=== PATIENT | male | born 1970 | race Caucasian/White ===

== ENCOUNTER 2020-10-18 21:32 | Emergency (ER) | payer OTHER ==
[~2020-10-18] VITALS: Ht 170.2 cm; Wt 95.3 kg
--- NOTE | 2020-10-18 21:54 | NUR ---
TELEPHONER AT BEDSIDE FOR DRAW
[2020-10-18 22:10] LABS: BASOPHILS % (AUTO) 0.7 % (0.0-2.0); EOSINOPHILS % (AUTO) 1.9 % (0.0-6.0); HEMATOCRIT 44 % (39-51); HEMOGLOBIN 15.3 g/dL (13.5-17.5); LYMPHOCYTES % (AUTO) 30.8 % (20.0-44.0); MEAN CORPUSCULAR HGB CONC 35 g/dl (31.0-36.0); MEAN CORPUSCULAR VOLUME 100 fL (80-96); MONOCYTES # (AUTO) 0.8 /CMM (0.1-1.30); MONOCYTES % (AUTO) 12.5 % (2.0-12.0); NEUTROPHILS # (AUTO) 3.5 /CMM (1.8-8.9); NEUTROPHILS % (AUTO) 54.1 % (43.0-81.0); PLATELET COUNT (AUTO) 250 /CMM (150-450); RED BLOOD CELL COUNT(AUTO) 4.45 MIL/uL (4.5-6.0); WHITE BLOOD COUNT (AUTO) 6.5 K/uL (4.3-11.0)
[2020-10-18 22:20] LABS: BILIRUBIN,URINE Negative (NEGATIVE); COLOR,URINE YELLOW (YELLOW); LEUKOCYTE ESTERASE ,URINE Negative (NEGATIVE); NITRITE, URINE Positive (NEGATIVE); PROTEIN,URINE Negative (NEGATIVE); UGLUCOSE Negative (NEGATIVE); UROBILINOGEN,URINE 0.2 EU/dL (0.2)
[2020-10-18 22:27] LABS: ACETAMINOPHEN < 10 ug/ml (10-30); ALANINE AMINOTRANSFERASE 60 U/L (12-78); ALBUMIN 4.3 g/dL (3.4-5.0); ALCOHOL, BLOOD < 3 mg/dL (0-0); ALKALINE PHOSPHATASE 99 U/L (46-116); ASPARTATE AMINOTRANSFERASE 54 U/L (15-37); BILIRUBIN,DIRECT 0.2 mg/dL (0.0-0.2); BILIRUBIN,TOTAL 0.8 mg/dL (0.2-1.0); CALCIUM, SERUM 9.4 mg/dL (8.5-10.1); CARBON DIOXIDE 31 mmol/L (21-32); CHLORIDE 102 mmol/L (98-107); CREATININE 1.4 mg/dL (0.6-1.3); GLUCOSE 104 mg/dL (74-106); POTASSIUM 4.1 mmol/L (3.5-5.1); SODIUM SERUM 139 mmol/L (136-145); TOTAL PROTEIN, SERUM 7.7 g/dL (6.4-8.2); UREA NITROGEN, BLOOD 19 mg/dL (7-18)
--- NOTE | 2020-10-18 22:38 | NUR ---
CLINICAL AND FACESHEET FAXED TO [facility] FOR VOLUNTARY ADMISSION.
[2020-10-18 23:13] LABS: RBC,URINE 0-2 /HPF (0-2)
[2020-10-18 23:14] LABS: BACTERIA,URINE Few /HPF (None Seen); MUCUS,URINE Few /LPF (None Seen); SQUAMOUS EPITHELIAL CELL,UR Few /HPF (None Seen); URINE AMORPHOUS PHOSPHATES Few /HPF (None Seen)
--- NOTE | 2020-10-19 00:07 | NUR ---
ACCEPTING INFO: PT ACCEPTED AT [facility] ACCEPTING MD CROOK PHONE # FOR REPORT PT WILL GO TO UNIT 2
--- NOTE | 2020-10-19 00:20 | NUR ---
[id number] CALLED FOR TRANSPORT. RESERVATION #[id number]. WILL CALL BACK FOR ETA.
--- NOTE | 2020-10-19 00:36 | NUR ---
[facility] ETA 0200 PER [id number].
--- NOTE | 2020-10-19 01:10 | NUR ---
REPORT CALLED TO JESSICA VALERIO.
[2020-10-19 01:18] VITALS: BP 124/86
--- NOTE | 2020-10-19 01:19 | NUR ---
TRANSPORT AT BEDSIDE REPORT GIVEN TO EMT.
== END 2020-10-19 01:27 ==
LOC: ER 21:32
DX: R45.851 Suicidal ideations (principal); F32.9 Major depressive disorder, single episode, unspecified; Z91.14 Patient's other noncompliance with medication regimen; Z20.822 Contact with and (suspected) exposure to COVID-19
CPT/HCPCS: 36415; 80048; 80076; 80299; 80307; 80320; 81001; 85025; 87086; 87426; 99285; C9803; G0480

== ENCOUNTER 2020-10-30 03:38 | Emergency (ER) | payer OTHER ==
[~2020-10-30] VITALS: Ht 170.2 cm; Wt 95.3 kg
--- NOTE | 2020-10-30 04:07 | NUR ---
BIBS FOR C/O SI PLANNNING TO HANG HIMSELF. PT IS REQUESTING VOLUNTARY PSYCH ADMISSION . PT AMBULATORY WITH STEADY GAIT. ALERT AND OX3. BREATHING EVENLY, W/ NO C.O PAIN OR DISCOMFORT. VSS. URINE SAMPLE OBTAINED. PT REMAINED UNDER SI PRECAUTION. WILL CONT TO MONITOR,
--- NOTE | 2020-10-30 04:09 | NUR ---
dr louis assessing the pt
[2020-10-30 04:10] VITALS: BP 154/98
[2020-10-30 04:39] LABS: BASOPHILS % (AUTO) 0.4 % (0.0-2.0); EOSINOPHILS % (AUTO) 1.9 % (0.0-6.0); HEMATOCRIT 40 % (39-51); HEMOGLOBIN 13.9 g/dL (13.5-17.5); LYMPHOCYTES # (AUTO) 1.2 /CMM (0.8-4.8); LYMPHOCYTES % (AUTO) 16.5 % (20.0-44.0); MEAN CORPUSCULAR HGB CONC 35 g/dl (31.0-36.0); MEAN CORPUSCULAR VOLUME 100 fL (80-96); MONOCYTES # (AUTO) 0.7 /CMM (0.1-1.30); MONOCYTES % (AUTO) 10.3 % (2.0-12.0); NEUTROPHILS % (AUTO) 70.9 % (43.0-81.0); PLATELET COUNT (AUTO) 227 /CMM (150-450); RED BLOOD CELL COUNT(AUTO) 4.01 MIL/uL (4.5-6.0); WHITE BLOOD COUNT (AUTO) 7.1 K/uL (4.3-11.0)
[2020-10-30 05:07] LABS: COLOR,URINE YELLOW (YELLOW)
[2020-10-30 05:08] LABS: PH,URINE 6.5 (5.0-8.0); PROTEIN,URINE NEGATIVE (NEGATIVE)
[2020-10-30 05:09] LABS: BILIRUBIN,URINE NEGATIVE (NEGATIVE); UGLUCOSE NEGATIVE (NEGATIVE); UROBILINOGEN,URINE 0.2 EU/dL (0.2)
[2020-10-30 05:10] LABS: ALANINE AMINOTRANSFERASE 46 U/L (12-78); ALBUMIN 3.7 g/dL (3.4-5.0); ALCOHOL, BLOOD < 3 mg/dL (0-0); ALKALINE PHOSPHATASE 82 U/L (46-116); ASPARTATE AMINOTRANSFERASE 27 U/L (15-37); BILIRUBIN,DIRECT 0.1 mg/dL (0.0-0.2); BILIRUBIN,TOTAL 0.4 mg/dL (0.2-1.0); CALCIUM, SERUM 8.8 mg/dL (8.5-10.1); CARBON DIOXIDE 26 mmol/L (21-32); CHLORIDE 103 mmol/L (98-107); CREATININE 1.1 mg/dL (0.6-1.3); GLUCOSE 104 mg/dL (74-106); POTASSIUM 3.4 mmol/L (3.5-5.1); SODIUM SERUM 139 mmol/L (136-145); TOTAL PROTEIN, SERUM 7.1 g/dL (6.4-8.2); UREA NITROGEN, BLOOD 11 mg/dL (7-18)
[2020-10-30 05:11] LABS: LEUKOCYTE ESTERASE ,URINE NEGATIVE (NEGATIVE); NITRITE, URINE NEGATIVE (NEGATIVE)
[2020-10-30 05:36] LABS: ACETAMINOPHEN < 2 ug/ml (10-30)
--- NOTE | 2020-10-30 11:02 | NUR ---
Health Benefits Specialist Consult: SW consult requested by ER staff for a 50 year old male for suicidal ideation. SW met with pt at waiting room and conducted an assessment at 10:15 am. Pt made good eye contact during the assessment. Pt. alert and oriented x4 (time,place, self, and situation). Pt appears to be in an anxious mood and distress affect. Pt.'s speech is within normal limits. Pt is groomed, had proper attire. Pt states is having suicidal ideation with a plan to hang himself. Pt currently lives at ([address] [place] [address], ). Pt lives with roommates but refuses to give further information. Pt does have support system (Mother, Jeni Donis, ). Pt state " I do not want anyone to know I am here ". Pt is currently unemployed and receives unemployment benefits. 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 SW offers pt voluntary psychiatric hospitalization. Pt verbally agrees to voluntary psychiatric hospitalization. Pt ambulates with steady gait and no DME. Pt has hx psychiatric hospitalization (depression) and psychotropic medication (Zyprexa). Pt denies having homicidal ideation. Pt is also non cooperative with further questions during the assessment. Pt is cooperative during the assessment. Pt will be transferred to psychiatric hospitalization once being medically cleared and discharged. Plan: RENU referred pt. to [facility] ([facility] (Fili- graphic art sales representative) ([address] [place] [id number]) ([phone] & [phone]) for psychiatric treatment. Health Benefits Specialist office is available upon request.
--- NOTE | 2020-10-30 11:14 | NUR ---
Patient Tranfers to outside Facility Physician:Dr. Garcia Location:[facility] unit [phone]
--- NOTE | 2020-10-30 11:33 | NUR ---
CALLED CALL THE CAR FOR TRANSPORT TO [facility]. RESERVATION NUMBER IS [id number].
== END 2020-10-30 12:45 ==
LOC: ER 03:42
DX: R45.851 Suicidal ideations (principal); Z20.822 Contact with and (suspected) exposure to COVID-19; F32.9 Major depressive disorder, single episode, unspecified; R03.0 Elevated blood-pressure reading, without diagnosis of hypertension
CPT/HCPCS: 36415; 80048; 80076; 80299; 80307; 80320; 81003; 85025; 87426; 99285; C9803; G0480

== ENCOUNTER 2020-11-19 03:22 | Emergency (ER) | payer OTHER ==
[~2020-11-19] VITALS: Ht 177.8 cm; Wt 95.3 kg
--- NOTE | 2020-11-19 03:40 | NUR ---
URINE OBTAINED AND SENT TO LAB
--- NOTE | 2020-11-19 03:46 | NUR ---
PT AAOX4. AMBULATORY WITH STEADY GAIT. BIBSELF C/O SI WITH NO PLAN. ER AT BEDSIDE. AWAITING ORDERS.
--- NOTE | 2020-11-19 04:18 | NUR ---
AIRLINE OPERATIONS AGENT AT BEDSIDE FOR BLOOD WORK
--- NOTE | 2020-11-19 04:19 | NUR ---
KAVITHAID SWABBED, SENT TO LAB.
[2020-11-19 04:33] LABS: BASOPHILS % (AUTO) 0.5 % (0.0-2.0); EOSINOPHILS % (AUTO) 4.4 % (0.0-6.0); HEMATOCRIT 43 % (39-51); HEMOGLOBIN 15.1 g/dL (13.5-17.5); LYMPHOCYTES # (AUTO) 1.4 /CMM (0.8-4.8); LYMPHOCYTES % (AUTO) 25.1 % (20.0-44.0); MEAN CORPUSCULAR HGB CONC 35 g/dl (31.0-36.0); MEAN CORPUSCULAR VOLUME 100 fL (80-96); MONOCYTES # (AUTO) 0.5 /CMM (0.1-1.30); MONOCYTES % (AUTO) 9.4 % (2.0-12.0); NEUTROPHILS # (AUTO) 3.4 /CMM (1.8-8.9); NEUTROPHILS % (AUTO) 60.6 % (43.0-81.0); PLATELET COUNT (AUTO) 260 /CMM (150-450); RED BLOOD CELL COUNT(AUTO) 4.31 MIL/uL (4.5-6.0); WHITE BLOOD COUNT (AUTO) 5.6 K/uL (4.3-11.0)
[2020-11-19 04:38] LABS: BILIRUBIN,URINE NEGATIVE (NEGATIVE); COLOR,URINE YELLOW (YELLOW); LEUKOCYTE ESTERASE ,URINE NEGATIVE (NEGATIVE); NITRITE, URINE POSITIVE (NEGATIVE); PH,URINE 7.5 (5.0-8.0); PROTEIN,URINE NEGATIVE (NEGATIVE); UGLUCOSE NEGATIVE (NEGATIVE); UROBILINOGEN,URINE 0.2 EU/dL (0.2)
[2020-11-19 05:13] LABS: RBC,URINE 0-2 /HPF (0-2); WBC,URINE 0-2 /HPF (0-3)
[2020-11-19 05:14] LABS: BACTERIA,URINE Many /HPF (None Seen); SQUAMOUS EPITHELIAL CELL,UR Few /HPF (None Seen)
[2020-11-19 05:22] LABS: CALCIUM, SERUM 9.1 mg/dL (8.5-10.1); CARBON DIOXIDE 27 mmol/L (21-32); CHLORIDE 105 mmol/L (98-107); CREATININE 1.1 mg/dL (0.6-1.3); GLUCOSE 131 mg/dL (74-106); POTASSIUM 3.5 mmol/L (3.5-5.1); SODIUM SERUM 142 mmol/L (136-145); UREA NITROGEN, BLOOD 11 mg/dL (7-18)
[2020-11-19 05:27] LABS: ALANINE AMINOTRANSFERASE 31 U/L (12-78); ALBUMIN 3.7 g/dL (3.4-5.0); ALCOHOL, BLOOD < 3 mg/dL (0-0); ALKALINE PHOSPHATASE 90 U/L (46-116); ASPARTATE AMINOTRANSFERASE 17 U/L (15-37); BILIRUBIN,DIRECT 0.1 mg/dL (0.0-0.2); BILIRUBIN,TOTAL 0.3 mg/dL (0.2-1.0); TOTAL PROTEIN, SERUM 7.2 g/dL (6.4-8.2)
[2020-11-19 05:30] LABS: ACETAMINOPHEN < 2 ug/ml (10-30)
--- NOTE | 2020-11-19 05:50 | NUR ---
clinicals faxed to [facility] intake
--- NOTE | 2020-11-19 11:13 | NUR ---
Spoke to FARIBA from [facility] "We are at full capacity at this time. We presented to denzel and awaiting call back."
--- NOTE | 2020-11-19 12:45 | NUR ---
ART CALLED AND STATED THAT [facility] ACCEPT[facility] PT. UNDER THE CARE OF DR. CROOK AND INTERNAL MEDICINE, DR. ALONZO. NURSE FROM UNIT 2 NEEDS REPORT. NUMBER IS [phone]
--- NOTE | 2020-11-19 13:17 | NUR ---
CALLED CALL THE CAR FOR TRANSPORT TO [facility]. TRIP NUMBER IS [id number]. ETA IS 2-4 HOURS.
--- NOTE | 2020-11-19 14:16 | NUR ---
CALLED [facility] FOR PT TRANSPORT TO [facility]. ETA IS 3:15
--- NOTE | 2020-11-19 14:18 | NUR ---
CANCELLED THE CALL THE CAR TRANSPORT.
--- NOTE | 2020-11-19 15:12 | NUR ---
Transfer info: Transfer to: [facility] Transport: [facility] [address] Condition on transfer: Stable Report to: Maria Guadalupe (unit 2 psych) EMT: Mynor
[2020-11-19 15:32] VITALS: BP 147/80
== END 2020-11-19 15:33 ==
LOC: ER 03:26
DX: R45.851 Suicidal ideations (principal); F20.9 Schizophrenia, unspecified; F32.9 Major depressive disorder, single episode, unspecified; Z20.822 Contact with and (suspected) exposure to COVID-19; R78.4 Finding of other drugs of addictive potential in blood
CPT/HCPCS: 36415; 80048; 80076; 80299; 80307; 80320; 81001; 85025; 87086; 87426; 99285; C9803; G0480

== ENCOUNTER 2020-12-26 04:53 | Emergency (ER) | payer OTHER ==
[~2020-12-26] VITALS: Ht 170.2 cm; Wt 98.4 kg
--- NOTE | 2020-12-26 05:16 | NUR ---
PT IS PRESENTED TO THE ER REQUESTING VOLUNTARY ADMISSION TO A PSYCH HOSPITAL DUE TO SUICIDAL THOUGHT. PT DID NOT REPORT AN SPECIFIC PLAN FOR SI. PT AMBULATORY TO THE BATHROOM WITH STEADY GAITS. URINE SAMPLE OBTAINED , PT THEN WAS PLACED IN BED 11, ON MONITOR AND UNDER CLOSE SUPERVISION OF A SITTER. SI PRECAUTION IMPLEMENTED. WILL CONT TO MONITOR ,
[2020-12-26 05:34] LABS: BASOPHILS % (AUTO) 0.7 % (0.0-2.0); EOSINOPHILS % (AUTO) 1.4 % (0.0-6.0); HEMATOCRIT 41 % (39-51); HEMOGLOBIN 14.2 g/dL (13.5-17.5); LYMPHOCYTES # (AUTO) 1.3 /CMM (0.8-4.8); LYMPHOCYTES % (AUTO) 22.9 % (20.0-44.0); MEAN CORPUSCULAR HGB CONC 35 g/dl (31.0-36.0); MEAN CORPUSCULAR VOLUME 101 fL (80-96); MONOCYTES # (AUTO) 0.6 /CMM (0.1-1.30); MONOCYTES % (AUTO) 11.6 % (2.0-12.0); NEUTROPHILS # (AUTO) 3.6 /CMM (1.8-8.9); NEUTROPHILS % (AUTO) 63.4 % (43.0-81.0); PLATELET COUNT (AUTO) 229 /CMM (150-450); RED BLOOD CELL COUNT(AUTO) 4.05 MIL/uL (4.5-6.0); WHITE BLOOD COUNT (AUTO) 5.6 K/uL (4.3-11.0)
[2020-12-26 05:49] LABS: CALCIUM, SERUM 8.8 mg/dL (8.5-10.1); CARBON DIOXIDE 30 mmol/L (21-32); CHLORIDE 106 mmol/L (98-107); CREATININE 1.2 mg/dL (0.6-1.3); GLUCOSE 94 mg/dL (74-106); SODIUM SERUM 142 mmol/L (136-145); UREA NITROGEN, BLOOD 18 mg/dL (7-18)
[2020-12-26 05:54] LABS: ALANINE AMINOTRANSFERASE 46 U/L (12-78); ALKALINE PHOSPHATASE 85 U/L (46-116); ASPARTATE AMINOTRANSFERASE 35 U/L (15-37); BILIRUBIN,DIRECT 0.1 mg/dL (0.0-0.2); BILIRUBIN,TOTAL 0.6 mg/dL (0.2-1.0); TOTAL PROTEIN, SERUM 7.4 g/dL (6.4-8.2)
[2020-12-26 05:55] LABS: ACETAMINOPHEN < 2 ug/ml (10-30); ALCOHOL, BLOOD < 3 mg/dL (0-0)
[2020-12-26 06:04] LABS: BILIRUBIN,URINE NEGATIVE (NEGATIVE); COLOR,URINE YELLOW (YELLOW); LEUKOCYTE ESTERASE ,URINE NEGATIVE (NEGATIVE); NITRITE, URINE POSITIVE (NEGATIVE); PROTEIN,URINE NEGATIVE (NEGATIVE); UGLUCOSE NEGATIVE (NEGATIVE); UROBILINOGEN,URINE 0.2 EU/dL (0.2)
--- NOTE | 2020-12-26 06:08 | NUR ---
LAB CALLED REGARIDNG NEGATIVE COVID RESULT.
--- NOTE | 2020-12-26 06:59 | NUR ---
CLINICAL AND FACESHEET FAXED TO [facility]TA[facility] FOR VOLUNTARY PSYCH ADMISSION.
[2020-12-26 07:10] LABS: RBC,URINE NONE SEEN /HPF (0-2); WBC,URINE NONE SEEN /HPF (0-3)
[2020-12-26 07:11] LABS: BACTERIA,URINE Few /HPF (None Seen); SQUAMOUS EPITHELIAL CELL,UR None Seen /HPF (None Seen)
--- NOTE | 2020-12-26 08:15 | NUR ---
PATIENT REQUESTED TO STAY IN THE WAITING ROOM, WILL ADVISE NURSE FOR ANY PATIENT'S NEEDS.
--- NOTE | 2020-12-26 09:13 | NUR ---
PT ACCEPTED TO [facility] UNDER DR. BOLAÑOS UNIT 2 AFTER 1100 CALL [phone]
--- NOTE | 2020-12-26 09:55 | NUR ---
SS Note: SW attempted to meet with pt. however, SW unable to find pt. SW will be available as needed.
[2020-12-26 11:25] VITALS: BP 140/70
--- NOTE | 2020-12-26 11:26 | NUR ---
CALLED [facility] FOR TRANSPORT ETA 90 MIN PER [facility]
--- NOTE | 2020-12-26 11:26 | NUR ---
REPORT GIVEN TO JACOB BURNETT AT [facility].
--- NOTE | 2020-12-26 13:44 | NUR ---
CALLED [facility] NEW ETA PER [facility] IS 15-20 MINS
--- NOTE | 2020-12-26 14:10 | NUR ---
REPORT GIVEN TO BUFFING WHEEL PRESSER. PATIENT IN NO DISTRESS. PATIENT TRANSFERRED TO [facility].
== END 2020-12-26 14:11 ==
LOC: ER 04:58
DX: R45.851 Suicidal ideations (principal); F99 Mental disorder, not otherwise specified; F17.200 Nicotine dependence, unspecified, uncomplicated; Z20.822 Contact with and (suspected) exposure to COVID-19
CPT/HCPCS: 36415; 80048; 80076; 80299; 80307; 80320; 81001; 85025; 87086; 87426; 99285; C9803; G0480

== ENCOUNTER 2021-01-08 15:18 | Emergency (ER) | payer OTHER ==
[~2021-01-08] VITALS: Ht 170.2 cm; Wt 99.8 kg
[2021-01-08 15:31] VITALS: BP 150/94
--- NOTE | 2021-01-08 15:31 | NUR ---
pt ambulatory w/ steady gait c/o being depressed and suicidal x few days. 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 pt requesting to go voluntary to [facility]. stable vitals. nad noted. awaiting md nicole.
--- NOTE | 2021-01-08 15:36 | NUR ---
dr kidd at bedside for eval.
--- NOTE | 2021-01-08 15:43 | NUR ---
photographic laboratory technician at bedside for blood draw.
[2021-01-08 15:59] LABS: BASOPHILS % (AUTO) 0.6 % (0.0-2.0); EOSINOPHILS % (AUTO) 1.2 % (0.0-6.0); HEMATOCRIT 42 % (39-51); HEMOGLOBIN 14.8 g/dL (13.5-17.5); LYMPHOCYTES # (AUTO) 1.1 /CMM (0.8-4.8); LYMPHOCYTES % (AUTO) 21.4 % (20.0-44.0); MEAN CORPUSCULAR HGB CONC 35 g/dl (31.0-36.0); MEAN CORPUSCULAR VOLUME 101 fL (80-96); MONOCYTES # (AUTO) 0.4 /CMM (0.1-1.30); MONOCYTES % (AUTO) 8.2 % (2.0-12.0); NEUTROPHILS # (AUTO) 3.6 /CMM (1.8-8.9); NEUTROPHILS % (AUTO) 68.6 % (43.0-81.0); PLATELET COUNT (AUTO) 281 /CMM (150-450); WHITE BLOOD COUNT (AUTO) 5.2 K/uL (4.3-11.0)
[2021-01-08 16:08] LABS: CARBON DIOXIDE 28 mmol/L (21-32); CHLORIDE 104 mmol/L (98-107); GLUCOSE 113 mg/dL (74-106); POTASSIUM 3.8 mmol/L (3.5-5.1); SODIUM SERUM 140 mmol/L (136-145); UREA NITROGEN, BLOOD 9 mg/dL (7-18)
[2021-01-08 16:08] LABS: BILIRUBIN,URINE Negative (NEGATIVE); COLOR,URINE YELLOW (YELLOW); LEUKOCYTE ESTERASE ,URINE Negative (NEGATIVE); NITRITE, URINE Positive (NEGATIVE); PH,URINE 7.5 (5.0-8.0); PROTEIN,URINE Negative (NEGATIVE); UGLUCOSE Negative (NEGATIVE); UROBILINOGEN,URINE 0.2 EU/dL (0.2)
[2021-01-08 16:13] LABS: BACTERIA,URINE Few /HPF (None Seen); RBC,URINE 0-2 /HPF (0-2); SQUAMOUS EPITHELIAL CELL,UR Few /HPF (None Seen); WBC,URINE 0-2 /HPF (0-3)
[2021-01-08 16:14] LABS: ALANINE AMINOTRANSFERASE 36 U/L (12-78); ALBUMIN 3.9 g/dL (3.4-5.0); ALCOHOL, BLOOD < 3 mg/dL (0-0); ALKALINE PHOSPHATASE 86 U/L (46-116); ASPARTATE AMINOTRANSFERASE 24 U/L (15-37); BILIRUBIN,DIRECT 0.1 mg/dL (0.0-0.2); BILIRUBIN,TOTAL 0.4 mg/dL (0.2-1.0); TOTAL PROTEIN, SERUM 7.4 g/dL (6.4-8.2)
[2021-01-08 16:16] LABS: ACETAMINOPHEN < 0 ug/ml (10-30)
--- NOTE | 2021-01-08 22:14 | NUR ---
PT ACCEPTED AT [facility] FOSTER UNIT P6 EXT [id number]
--- NOTE | 2021-01-08 22:47 | NUR ---
SPOKE WITH ETA REGARDING TRANSPORT, ETA IS 30 MINS. PT WILL BE GOING TO [facility].
--- NOTE | 2021-01-08 23:35 | NUR ---
REPORT GIVEN TO LAURIE BURNETT FOR CONTINUATION OF CARE.
--- NOTE | 2021-01-08 23:49 | NUR ---
[facility] AT BEDSIDE FOR TRANSPORT TO [facility].
== END 2021-01-08 23:49 ==
LOC: ER 15:22
DX: R45.851 Suicidal ideations (principal); F32.9 Major depressive disorder, single episode, unspecified; F17.200 Nicotine dependence, unspecified, uncomplicated; Z20.822 Contact with and (suspected) exposure to COVID-19
CPT/HCPCS: 36415; 80048; 80076; 80299; 80307; 80320; 81001; 85025; 87086; 87426; 99285; C9803; G0480